=== PATIENT | female | born 2000 | race Hispanic/Latino ===

== ENCOUNTER 2022-05-15 17:18 | Emergency (ER) | payer SELFPAY ==
[2022-05-15] MEDS ORDERED: Ondansetron ODT 4 MG TAB ONE (18:46)
== END 2022-05-15 18:51 | disposition home or self-care (01) ==
LOC: ERS 17:18
DX: O21.9 Vomiting of pregnancy, unspecified (principal); Z3A.01 Less than 8 weeks gestation of pregnancy
CPT/HCPCS: 99283; Q0162

== ENCOUNTER 2022-09-13 12:50 | Outpatient (CLI) | payer OTHER | END 2022-09-13 12:51 | disposition home or self-care (01) | LOC: BICULT 12:50 | PROVIDERS: ATTEND Family Medicine | DX: O09.893 Supervision of other high risk pregnancies, third trimester (principal) | CPT/HCPCS: 76805 ==